=== PATIENT | female | born 1985 | race Caucasian/White ===

== ENCOUNTER 2016-09-17 11:56 | Emergency (ER) | payer OTHER ==
[~2016-09-17 11:56] MED LIST: ACET50TA PO; COLA100C PO; IBUP60TA PO; PERCOCET PO; VITAPRTA PO
--- NOTE | 2016-09-17 12:47 | EDDOCDS ---
Nurse's Notes [facility] Name: Jewels Reveles Age: 31 yrs Sex: Female : 1985 Arrival Date: 09/17/2016 Time: 11:56 Bed Triage 1 Private MD: JUDI Aguilar Diagnosis: Pain in right knee Presentation: 09/17 12:17 Presenting complaint: Patient states: pain around right knee feels like it's really [facility] deep, couldn't even walk this morning my had to stay home from work, this is the third time it's happened in a span of 6-months. Adult Sepsis Screening: The patient does not have new or worsening altered mentation. Patient's respiratory rate is less than 22. Systolic blood pressure is greater than 100. Patient has a qSOFA score of 0- Negative Sepsis Screen. Suicide/Homicide risk assessment- the patient denies having any suicidal and/or homicidal ideations and does not present with any other emotional, behavioral or mental health complaints. Status: The patient is a dependent. Transition of care: patient was not received from another setting of care. 12:17 Acuity: PADMAJA Level 4 [facility] 12:17 Method Of Arrival: Walkin/Carried/Asstd [facility] Triage Assessment: 12:18 General: Appears in no apparent distress, comfortable, Behavior is appropriate for age, [facility] cooperative. Pain: Location: right knee Pain currently is 8 out of 10 on a pain scale. HIV screening NA for this visit Offered previously. Neurological: Level of Consciousness is awake, alert, Oriented to person, place, time. Respiratory: Airway is patent Respiratory effort is even, unlabored, Respiratory pattern is regular, symmetrical. Musculoskeletal: Range of motion intact in all extremities. 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 clonazepam 0.5 mg Oral tab 1 tab 2 times per day prn 2. Lexapro 20 mg Oral tab once daily - PMHx: Anxiety; Irritable bowel syndrome; Pseudo Tumor Cerebri; - PSHx: Lithotripsy; D & C; mandible surgery; Laparoscopy; - Social history: Smoking status: Patient states former smoker of tobacco. No barriers to communication noted. - Family history: Not pertinent. - : The pt / caregiver states he / she is not on anticoagulants. Home medication list is obtained from the patient, [employer] import data. - Exposure Risk Screening:: None identified. Screenin:43 Screening information is obtained from the patient. Fall risk: No risks identified. cj Assistance ADL's: requires no assistance with activities of daily living. Abuse/DV Screen: The patient / caregiver reports he/she is: not in a situation that causes fear, pain or injury. Nutritional screening: No deficits noted. Advance Directives: There is no active DNR order. home support is adequate. Assessment: 12:43 General: Appears in no apparent distress, comfortable, Behavior is appropriate for age, cj cooperative, reviewed discharge instructions with patient who states she thought she would get an MRI here and feels not enough was done for her. discussed medical emergent use of MRI, discussed follow up care recommendations, and discussed medications prescribed. Encouraged patient to follow up as recommended and encouraged patient to return to ED if condition worsens. Vital Signs: 11:59 BP 135 / 80; Pulse 96; Resp 18; Temp 98.1; Pulse Ox 99% ; Weight 77.11 kg; Height 5 ft. elp 2 in. (157.48 cm); Pain 9/10; 11:59 Body Mass Index 31.09 (77.11 kg, 157.48 cm) [facility] Vitals: 11:59 Log In Time: September 17, 2016 at 11:57. [facility] ED Course: 11:58 Patient visited by Gabriela Sam PCA. elp 11:58 Jeff [facility] is Private Physician. elp 11:58 Patient moved to Waiting elp 11:59 Patient visited by Gabriela Sam PCA. elp 11:59 Patient moved to Pre RCE elp 12:18 Triage Initiated cj 12:20 [facility] btw 12:20 Kavya Dolan MD is Attending Physician. btw 12:20 Patient visited by Miller Holt PA. btw 12:20 Patient moved to Triage 1 cj 12:26 JUDI Aguilar is Referral Physician. btw 12:43 The patient / caregiver is instructed regarding the plan of care and ED course. [facility] 12:43 No IV's were initiated during this patient's visit. No procedures done that require [facility] assistance. Order Results: There are currently no results for this order. Outcome: 12:27 Discharge ordered by Provider. btw 12:43 Discharge Assessment: Patient awake, alert and oriented x 3. No cognitive and/or [facility] functional deficits noted. Patient verbalized understanding of disposition instructions. patient administered narcotics - no. The following High Risk Discharge criteria are identified: None. Discharged to home ambulatory. Condition: good Condition: stable Condition: improved. Discharge instructions given to patient, Instructed on discharge instructions, follow up and referral plans. medication usage, Demonstrated understanding of instructions, medications, Pt was receptive of discharge instructions/ teaching. Prescriptions given X 1. No special radiology studies were completed. Property :Personal belongings accompany Pt. 12:46 Patient left the ED. [facility] Signatures: Miller Holt PA PA btw Hafner, JaneRN RN [facility] Gabriela Sam, TINNING MACHINE SET UP OPERATOR TINNING MACHINE SET UP OPERATOR elp RJ
--- NOTE | 2016-09-17 12:47 | EDDOCDS ---
Physician Documentation [facility] Name: Jewels Reveles Age: 31 yrs Sex: Female : 1985 Arrival Date: 09/17/2016 Time: 11:56 Bed Triage 1 Private MD: JUDI Aguilar Disposition: 09/17/16 12:27 Discharged to Home/Self Care. Impression: Pain in right knee. - Condition is Stable. - Discharge Instructions: Arthralgia, Knee Pain. - Prescriptions for Medrol (Eder) 4 mg Oral Tablets, Dose Pack - take 1 Pack by ORAL route as directed - follow package instructions; 1 packet. - Medication Reconciliation, Local Pharmacy Hours form. - Follow up: JUDI Aguilar; When: Call to arrange an appointment; Reason: Further diagnostic work-up, Recheck today's complaints, Continuance of care. - Problem is new. - Symptoms are unchanged. Historical: - Allergies: Acetazolamide; - Home Meds: 1. clonazepam 0.5 mg Oral tab 1 tab 2 times per day prn 2. Lexapro 20 mg Oral tab once daily - PMHx: Anxiety; Irritable bowel syndrome; Pseudo Tumor Cerebri; - PSHx: Lithotripsy; D & C; mandible surgery; Laparoscopy; - Social history: Smoking status: Patient states former smoker of tobacco. No barriers to communication noted. - Family history: Not pertinent. - : The pt / caregiver states he / she is not on anticoagulants. Home medication list is obtained from the patient, [employer] import data. - Exposure Risk Screening:: None identified. 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 2 in. (157.48 cm); Pain 9/10; 11:59 Body Mass Index 31.09 (77.11 kg, 157.48 cm) elp MDM: 12:40 Financial registration complete. lg Signatures: Kaleb Singh, Reg Reg lg Miller Holt PA PA btw Hafner, Jane,RN RN [facility] MTDD
--- NOTE | 2016-09-19 13:47 | EDDOCDS ---
Physician Documentation [facility] Name: Jewels Reveles Age: 31 yrs Sex: Female : 1985 Arrival Date: 09/17/2016 Time: 11:56 Bed Triage 1 Private MD: JUDI Aguilar Disposition: 09/17/16 12:27 Discharged to Home/Self Care. Impression: Pain in right knee. - Condition is Stable. - Discharge Instructions: Arthralgia, Knee Pain. - Prescriptions for Medrol (Eder) 4 mg Oral Tablets, Dose Pack - take 1 Pack by ORAL route as directed - follow package instructions; 1 packet. - Medication Reconciliation, Local Pharmacy Hours form. - Follow up: JUDI Aguilar; When: Call to arrange an appointment; Reason: Further diagnostic work-up, Recheck today's complaints, Continuance of care. - Problem is new. - Symptoms are unchanged. Historical: - Allergies: Acetazolamide; - Home Meds: 1. clonazepam 0.5 mg Oral tab 1 tab 2 times per day prn 2. Lexapro 20 mg Oral tab once daily - PMHx: Anxiety; Irritable bowel syndrome; Pseudo Tumor Cerebri; - PSHx: Lithotripsy; D & C; mandible surgery; Laparoscopy; - Social history: Smoking status: Patient states former smoker of tobacco. No barriers to communication noted. - Family history: Not pertinent. - : The pt / caregiver states he / she is not on anticoagulants. Home medication list is obtained from the patient, [employer] import data. - Exposure Risk Screening:: None identified. NIGHT SHIFT: 09/17 12:18 LMP 09/03/2016 [facility] Vital Signs: 11:59 BP 135 / 80; Pulse 96; Resp 18; Temp 98.1; Pulse Ox 99% ; Weight 77.11 kg / 170 lbs; elp Height 5 ft. 2 in. (157.48 cm); Pain 9/10; 11:59 Body Mass Index 31.09 (77.11 kg, 157.48 cm) elp MDM: 12:40 Financial registration complete. lg 13:02 [facility] Payment Agreement was scanned into [employer] ([employer]) and attached to record. lg 14:35 T-Sheet-- Draft Copy was scanned into [employer]) and attached to record. gb Signatures: Iza Souza, Reg Reg gb Kaleb Singh, Reg Reg lg Miller Holt PA PA btw Amie Villalobos,RN RN [facility] The chart was reviewed and I authenticate all verbal orders and agree with the evaluation and treatment provided.Attachments: 13:02 [facility] Payment Agreement lg 14:35 T-Sheet-- Draft Copy gb Chart Complete MTDD
--- NOTE | 2016-09-19 13:47 | EDDOCDS ---
Physician Documentation [facility] Name: Jewels Reveles Age: 31 yrs Sex: Female : 1985 Arrival Date: 09/17/2016 Time: 11:56 Bed Triage 1 Private MD: JUDI Aguilar Disposition: 09/17/16 12:27 Discharged to Home/Self Care. Impression: Pain in right knee. - Condition is Stable. - Discharge Instructions: Arthralgia, Knee Pain. - Prescriptions for Medrol (Eder) 4 mg Oral Tablets, Dose Pack - take 1 Pack by ORAL route as directed - follow package instructions; 1 packet. - Medication Reconciliation, Local Pharmacy Hours form. - Follow up: JUDI Aguilar; When: Call to arrange an appointment; Reason: Further diagnostic work-up, Recheck today's complaints, Continuance of care. - Problem is new. - Symptoms are unchanged. Historical: - Allergies: Acetazolamide; - Home Meds: 1. clonazepam 0.5 mg Oral tab 1 tab 2 times per day prn 2. Lexapro 20 mg Oral tab once daily - PMHx: Anxiety; Irritable bowel syndrome; Pseudo Tumor Cerebri; - PSHx: Lithotripsy; D & C; mandible surgery; Laparoscopy; - Social history: Smoking status: Patient states former smoker of tobacco. No barriers to communication noted. - Family history: Not pertinent. - : The pt / caregiver states he / she is not on anticoagulants. Home medication list is obtained from the patient, [employer] import data. - Exposure Risk Screening:: None identified. 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 2 in. (157.48 cm); Pain 9/10; 11:59 Body Mass Index 31.09 (77.11 kg, 157.48 cm) elp MDM: 12:40 Financial registration complete. lg 13:02 [facility] Payment Agreement was scanned into [employer] and attached to record. lg 14:35 T-Sheet-- Draft Copy was scanned into [employer] and attached to record. gb Signatures: Iza Souza, Reg Reg gb Kaleb Singh, Reg Reg lg Miller Holt PA PA btw Amie Villalobos,RN RN [facility] The chart was reviewed and I authenticate all verbal orders and agree with the evaluation and treatment provided.Attachments: 13:02 [facility] Payment Agreement lg 14:35 T-Sheet-- Draft Copy gb Chart Complete MTDD
--- NOTE | 2016-09-19 13:47 | EDDOCDS ---
Nurse's Notes [facility] Name: Jewels Reveles Age: 31 yrs Sex: Female : 1985 Arrival Date: 09/17/2016 Time: 11:56 Bed Triage 1 Private MD: JUDI Aguilar Diagnosis: Pain in right knee Presentation: 09/17 12:17 Presenting complaint: Patient states: pain around right knee feels like it's really [facility] deep, couldn't even walk this morning my had to stay home from work, this is the third time it's happened in a span of 6-months. Adult Sepsis Screening: The patient does not have new or worsening altered mentation. Patient's respiratory rate is less than 22. Systolic blood pressure is greater than 100. Patient has a qSOFA score of 0- Negative Sepsis Screen. Suicide/Homicide risk assessment- the patient denies having any suicidal and/or homicidal ideations and does not present with any other emotional, behavioral or mental health complaints. Status: The patient is a dependent. Transition of care: patient was not received from another setting of care. 12:17 Acuity: PADMAJA Level 4 [facility] 12:17 Method Of Arrival: Walkin/Carried/Asstd [facility] Triage Assessment: 12:18 General: Appears in no apparent distress, comfortable, Behavior is appropriate for age, [facility] cooperative. Pain: Location: right knee Pain currently is 8 out of 10 on a pain scale. HIV screening NA for this visit Offered previously. Neurological: Level of Consciousness is awake, alert, Oriented to person, place, time. Respiratory: Airway is patent Respiratory effort is even, unlabored, Respiratory pattern is regular, symmetrical. Musculoskeletal: Range of motion intact in all extremities. 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 clonazepam 0.5 mg Oral tab 1 tab 2 times per day prn 2. Lexapro 20 mg Oral tab once daily - PMHx: Anxiety; Irritable bowel syndrome; Pseudo Tumor Cerebri; - PSHx: Lithotripsy; D & C; mandible surgery; Laparoscopy; - Social history: Smoking status: Patient states former smoker of tobacco. No barriers to communication noted. - Family history: Not pertinent. - : The pt / caregiver states he / she is not on anticoagulants. Home medication list is obtained from the patient, [employer] import data. - Exposure Risk Screening:: None identified. Screenin:43 Screening information is obtained from the patient. Fall risk: No risks identified. cj Assistance ADL's: requires no assistance with activities of daily living. Abuse/DV Screen: The patient / caregiver reports he/she is: not in a situation that causes fear, pain or injury. Nutritional screening: No deficits noted. Advance Directives: There is no active DNR order. home support is adequate. Assessment: 12:43 General: Appears in no apparent distress, comfortable, Behavior is appropriate for age, cj cooperative, reviewed discharge instructions with patient who states she thought she would get an MRI here and feels not enough was done for her. discussed medical emergent use of MRI, discussed follow up care recommendations, and discussed medications prescribed. Encouraged patient to follow up as recommended and encouraged patient to return to ED if condition worsens. Vital Signs: 11:59 BP 135 / 80; Pulse 96; Resp 18; Temp 98.1; Pulse Ox 99% ; Weight 77.11 kg; Height 5 ft. elp 2 in. (157.48 cm); Pain 9/10; 11:59 Body Mass Index 31.09 (77.11 kg, 157.48 cm) [facility] Vitals: 11:59 Log In Time: September 17, 2016 at 11:57. [facility] ED Course: 11:58 Patient visited by Gabriela Sam PCA. elp 11:58 Jeff [facility] is Private Physician. elp 11:58 Patient moved to Waiting elp 11:59 Patient visited by Gabriela Sam PCA. elp 11:59 Patient moved to Pre RCE elp 12:18 Triage Initiated cj 12:20 [facility]. btw 12:20 Kavya Dolan MD is Attending Physician. btw 12:20 Patient visited by Miller Holt PA. btw 12:20 Patient moved to Triage 1 cj 12:26 JUDI Aguilar is Referral Physician. btw 12:43 The patient / caregiver is instructed regarding the plan of care and ED course. [facility] 12:43 No IV's were initiated during this patient's visit. No procedures done that require [facility] assistance. 13:01 Patient name changed from Jewels\S\Sari\S\Gudenrath\S\ to Jewels\S\N\S\Gudenrath. EDMS 13:02 [facility] Payment Agreement was scanned into [email or web address] and attached to record. lg 14:35 T-Sheet-- Draft Copy was scanned into [email or web address] and attached to record. gb Order Results: There are currently no results for this order. Outcome: 12:27 Discharge ordered by Provider. bt 12:43 Discharge Assessment: Patient awake, alert and oriented x 3. No cognitive and/or [facility] functional deficits noted. Patient verbalized understanding of disposition instructions. patient administered narcotics - no. The following High Risk Discharge criteria are identified: None. Discharged to home ambulatory. Condition: good Condition: stable Condition: improved. Discharge instructions given to patient, Instructed on discharge instructions, follow up and referral plans. medication usage, Demonstrated understanding of instructions, medications, Pt was receptive of discharge instructions/ teaching. Prescriptions given X 1. No special radiology studies were completed. Property :Personal belongings accompany Pt. 12:46 Patient left the ED. [facility] Signatures: Dispatcher [employer] EDMS Iza Souza, Reg Reg gb Kaleb Singh, Reg Reg lg Miller oHlt PA PA btw Hafner, Jane, RN RN [facility] Gabriela Sam, EZEQUIEL TRANSPORTATION MANAGER elp Chart Complete [facility]
== END 2016-09-17 12:46 | disposition home or self-care (01) ==
LOC: M ED 11:56
DX: M25.561 Pain in right knee (principal); F41.9 Anxiety disorder, unspecified; K58.9 Irritable bowel syndrome, unspecified; G93.2 Benign intracranial hypertension; Z79.899 Other long term (current) drug therapy; Z88.8 Allergy status to other drugs, medicaments and biological substances

== ENCOUNTER 2016-12-07 12:17 | Emergency (ER) | payer OTHER ==
[~2016-12-07] VITALS: Ht 157.5 cm; Wt 93.0 kg
[~2016-12-07 12:17] MED LIST changes: -COLA100C PO; +COLA100C3 PO
[2016-12-07] MEDS ORDERED: ZOFR4TAB3 PO (12:37)
[2016-12-07] MEDS ORDERED: PERCOCET 5MG/325MG TAB PO ONE (13:30)
[2016-12-07 13:49] LABS: BASO % 0.3 % (0.0-1.0); EOS # 0.3 K/mm3 (0.0-0.50); LARGE UNSTAINED CELL # 0.1 K/mm3 (0.0-0.4); LARGE UNSTAINED CELL % 1.2 % (0.0-4.0); LYMPH # 2.1 K/mm3 (1.5-4.5); LYMPH % 20.2 % (24.0-44.0); MEAN CORPUSCULAR HEMOGLOBIN 29.3 pg (27.0-33.0); MEAN CORPUSCULAR HGB CONC 34.1 g/dl (32.0-36.5); MEAN CORPUSCULAR VOLUME 85.9 fl (80.0-96.0); MONO # 0.4 K/mm3 (0.0-0.8); MONO % 3.6 % (0.0-5.0); NEUTROPHILS # 7.3 K/mm3 (1.8-7.7); NEUTROPHILS % 71.7 % (36.0-66.0); PLATELET COUNT, AUTOMATED 190 k/mm3 (150-450); RED CELL DISTRIBUTION WIDTH 14.2 % (11.5-14.5); WHITE BLOOD COUNT 10.2 K/mm3 (4.0-10.0)
[2016-12-07 14:07] LABS: ANION GAP 8 MEQ/L (8-16); BLOOD UREA NITROGEN 7 MG/DL (7-18); CALCIUM LEVEL 9.5 MG/DL (8.5-10.1); CARBON DIOXIDE LEVEL 26 MEQ/L (21-32); CHLORIDE LEVEL 103 MEQ/L (98-107); CREATININE FOR GFR 0.53 MG/DL (0.55-1.02); GLOMERULAR FILTRATION RATE > 60.0 (>60); GLUCOSE, FASTING 97 MG/DL (70-105); POTASSIUM SERUM 3.8 MEQ/L (3.5-5.1); SODIUM LEVEL 137 MEQ/L (136-145)
[2016-12-07 14:27] VITALS: BP 137/68
[2016-12-07] MEDS ORDERED: KEFL500C7 PO (14:33)
--- NOTE | 2016-12-07 14:41 | REP ---
Urinary tract sonography: History: Left flank pain. Findings: Scanning through the level of the urinary bladder shows that it is largely empty. Incidental note is made of a viable intrauterine gestation. heart rate is recorded at 144 beats per minute. Renal cortical echogenicity is normal and contours are smooth bilaterally. There is no evidence of hydronephrosis on either side. No mass, cyst, or calculus is seen. The right kidney measures 11.6 x 5.5 x 5.0 cm. Left renal dimensions are 12.8 x 5.3 x 5.9 cm. Impression: Negative urinary tract sonography. No hydronephrosis seen. No calculus or mass noted. Signed by Remy Dejesus MD 12/07/2016 06:27 P
[2016-12-07] MEDS ORDERED: CEPHALEXIN 500 MG CAP PO ONE (14:45)
[2016-12-08] MEDS ORDERED: CYCL5TA PO (13:51)
== END 2016-12-07 14:44 | disposition home or self-care (01) ==
LOC: M ED 13:38
DX: N10 Acute pyelonephritis (principal); S29.012A Strain of muscle and tendon of back wall of thorax, initial encounter; X58.XXXA Exposure to other specified factors, initial encounter; Y92.89 Other specified places as the place of occurrence of the external cause; Y93.89 Activity, other specified; Y99.9 Unspecified external cause status

== ENCOUNTER → 2016-12-08 | Emergency (ER) | payer OTHER ==
[~2016-12-08] VITALS: Ht 157.5 cm; Wt 93.0 kg
[~2016-12-08] MED LIST changes: +CYCL5TA PO; +ISOVUE-370 76% 100ML VIAL (Q9967) As Ordered ONE; +KEFL500C7 PO; +ZOFR4TAB3 PO
[2016-12-08 12:36] LABS: BASO % 0.3 % (0.0-1.0); EOS # 0.2 K/mm3 (0.0-0.50); EOS % 2.2 % (0.0-3.0); LARGE UNSTAINED CELL # 0.1 K/mm3 (0.0-0.4); LARGE UNSTAINED CELL % 1.2 % (0.0-4.0); LYMPH # 2.1 K/mm3 (1.5-4.5); LYMPH % 20.8 % (24.0-44.0); MEAN CORPUSCULAR HEMOGLOBIN 28.9 pg (27.0-33.0); MEAN CORPUSCULAR HGB CONC 33.4 g/dl (32.0-36.5); MEAN CORPUSCULAR VOLUME 86.5 fl (80.0-96.0); MONO # 0.3 K/mm3 (0.0-0.8); MONO % 3.6 % (0.0-5.0); NEUTROPHILS # 6.9 K/mm3 (1.8-7.7); NEUTROPHILS % 71.8 % (36.0-66.0); PLATELET COUNT, AUTOMATED 198 k/mm3 (150-450); RED CELL DISTRIBUTION WIDTH 14.2 % (11.5-14.5); WHITE BLOOD COUNT 9.6 K/mm3 (4.0-10.0)
[2016-12-08 13:14] LABS: ANION GAP 8 MEQ/L (8-16); BLOOD UREA NITROGEN 9 MG/DL (7-18); CALCIUM LEVEL 9.3 MG/DL (8.5-10.1); CARBON DIOXIDE LEVEL 27 MEQ/L (21-32); CHLORIDE LEVEL 103 MEQ/L (98-107); CREATININE FOR GFR 0.64 MG/DL (0.55-1.02); GLOMERULAR FILTRATION RATE > 60.0 (>60); GLUCOSE, FASTING 83 MG/DL (70-105); SODIUM LEVEL 138 MEQ/L (136-145)
[2016-12-08 14:10] VITALS: BP 139/66
--- NOTE | 2016-12-08 14:27 | REP ---
CT PULMONARY ANGIOGRAM: With IV contrast. HISTORY: Left posterior chest pain. Question pulmonary embolus. No comparison study. Contrast dose: 75 mL of Isovue [address] TECHNIQUE: Helical scanning is acquired and overlapping 1.5 mm and contiguous 3 mm axial images are reformatted. In addition, a 3D work station is deployed to generate thick slab maximum intensity projection images in sagittal and coronal imaging projections. CT PULMONARY ANGIOGRAPHIC FINDINGS: There is good opacification of the pulmonary arterial tree. There is no CT evidence of pulmonary embolism. The thoracic aorta enhances homogeneously and is normal in course and caliber. No dissection or aortic aneurysm is seen. There is no evidence of pleural or pericardial effusion. There is a small sliding-type hiatal hernia. No infiltrate or atelectasis is seen in the lung allen. No bony destructive lesion is appreciated. No rib or other fracture is appreciated. Maximal intensity projection images show no additional abnormality. IMPRESSION: No CT evidence of pulmonary embolism. Negative CT pulmonary angiogram. Signed by Remy Dejesus MD 12/08/2016 03:40 P
== END | disposition home or self-care (01) ==
LOC: M ED 12:00
DX: O9A.211 Injury, poisoning and certain other consequences of external causes complicating pregnancy, first trimester (principal); S29.012A Strain of muscle and tendon of back wall of thorax, initial encounter; Z3A.12 12 weeks gestation of pregnancy; X58.XXXA Exposure to other specified factors, initial encounter; Y92.89 Other specified places as the place of occurrence of the external cause; Y93.89 Activity, other specified; Y99.9 Unspecified external cause status
CPT/HCPCS: 36415; 71275; 76775; 76857; 80048; 85025; 86901; 99282; Q9967

== ENCOUNTER → 2016-12-08 | Outpatient (CLI) | payer OTHER ==
[~2016-12-08] MED LIST changes: -ISOVUE-370 76% 100ML VIAL (Q9967) As Ordered ONE
--- NOTE | 2016-12-08 10:36 | REP ---
URINARY TRACT SONOGRAPHY: HISTORY: Possible stone, 73-owfj-3-day gestation. Left flank pain. History of kidney stones. Comparison sonography is the previous day, December 07, 2016. FINDINGS: Scanning at the level of the urinary bladder confirms the presence of emptying ureteral jets on color Doppler interrogation of the bladder lumen bilaterally. Bladder bazan are smooth as visualized. heart rate is recorded at 150 beats per minute. Renal cortical echogenicity pattern is normal and contours are smooth on both sides. There is no evidence of hydronephrosis on the left or the right. No calculus mass or cyst is seen in either kidney. The right kidney measures 11.3 x 6.1 x 5.1 cm. Left renal dimensions are 11.5 x 6.1 x 5.8 cm. IMPRESSION: No evidence of hydronephrosis, intrarenal calculus, mass or cyst on either side. Emptying ureteral jets are observed bilaterally in the urinary bladder on color Doppler. Signed by Remy Dejesus MD 12/08/2016 03:37 P
== END ==
LOC: M RAD 09:49
PROVIDERS: ATTEND Obstetrics & Gynecology
DX: R10.9 Unspecified abdominal pain (principal)

== ENCOUNTER 2017-04-21 13:46 | Outpatient (CLI) | payer OTHER ==
[~2017-04-21] VITALS: Ht 157.5 cm; Wt 100.0 kg
[~2017-04-21 13:46] MED LIST changes: -COLA100C3 PO; +COLA100C5 PO; -CYCL5TA PO; +CYCL5TAB PO; +KEFL500C17 PO; -KEFL500C7 PO
[2017-04-21] MEDS ORDERED: ANTA500C PO (13:55)
--- NOTE | 2017-04-21 21:08 | HPE ---
DATE OF ADMISSION: 04/21/2017 This lady is a 31-year-old 6, para 4, abortio 1, last menstrual period (LMP) 09/03/2016, estimated date of confinement (EDC) 06/20/2017 at 31 and 1 weeks of gestation with a feeling of pelvic pressure and something popping in her vagina. Her risk factors are she was noncompliant, she had pseudotumor cerebri, she is a GDMA1. She failed a 1-hour glucose. Did not do her 3-hour GTT. She has had gestational diabetes with three out of her four pregnancies. She suffers from depression and is on Zoloft. PAST HISTORY: In 2011 at 37 weeks, 6-pound 11-ounce male, spontaneous vaginal delivery. In 2012 at 38 weeks, 6-pound female, spontaneous vaginal delivery. In 2013 at 38 and 6 weeks, female, spontaneous vaginal delivery. In 2015 at 39 weeks, 8-pound female, spontaneous vaginal delivery. Apparently with one of her pregnancies she had labor at 28 weeks. and she was given steroids, but she delivered at 37 weeks. Her labs show O positive, HIV negative, hepatitis negative, RPR negative, rubella immune, Varicella immune. Pap shows HPV. Gonorrhea and chlamydia ate negative. One-hour glucose is 156. We do not have a 3-hour GTT. Presently today her urine is 1015, pH 6, negative, negative. Blood pressure is 148/81, respirations are 18, pulse 103, and temperature is 98.4. The rest of the examination is unremarkable. She does not seem to be in any distress. Symphysis fundus height is 32. Four-quadrant bowel sounds are noted. Soft uterus. Category 1 strip with no contractions. Pelvic examination: Mo loss of fluid or vaginal discharge. Cervix is closed, posterior high, not dilated and not effaced. She is seeing Dr. Aguilar tomorrow morning for re-evaluation, as that is her regular visit. The rest the examination, as mentioned, is unremarkable. She is normocephalic, atraumatic. Neck: Full range of motion. Pupils equal and reactive to light. Chest: Distal pulses are symmetric. No evident deep vein thrombosis (DVT), pulmonary embolism (PE), or superficial phlebitis. Lungs are clear bilaterally to bases. No wheezes or rhonchi. No costovertebral angle (CVA) tenderness. Uterus is soft, . Four-quadrant bowel sounds. Appropriate symphysis fundus height. She has no rashes, lesions, or pruritus. No arthralgia, myalgia. No complaints of cough, wheezes, shortness of breath, or dyspnea on exertion. No allergies. No chest pain. She is not bleeding. Neurologic complete. No incontinency, urgency, or frequency. No nausea, vomiting, diarrhea, or constipation. We are uncertain about her diabetic issues, as she do her 3-hour GTT. GYNECOLOGIC HISTORY: Unremarkable. PAST MEDICAL/SURGICAL HISTORY: Unremarkable. FAMILY HISTORY: Noncontributory. She does not smoke, drink, abuse drugs. She is a qfvy-du-qbtv mom, and she is with no domestic violence. In summary, we have a 31 and 1 week of gestation with pelvic pressure secondary to compression at the symphysis pubis. No evidence of active labor. No evidence of loss of fluid or vaginal discharge. The patient was discharged undelivered with precautions to see Dr. Lauren vallecillo that tomorrow morning for re-evaluation. She was told to come back if symptomatology changed.
== END 2017-04-21 16:20 | disposition home or self-care (01) ==
LOC: M LDO 13:46
PROVIDERS: ATTEND Obstetrics & Gynecology
DX: O26.893 Other specified pregnancy related conditions, third trimester (principal); R10.2 Pelvic and perineal pain; O24.419 Gestational diabetes mellitus in pregnancy, unspecified control; Z3A.31 31 weeks gestation of pregnancy; O99.343 Other mental disorders complicating pregnancy, third trimester; F33.9 Major depressive disorder, recurrent, unspecified; O28.2 Abnormal cytological finding on antenatal screening of mother; Z79.899 Other long term (current) drug therapy

== ENCOUNTER 2017-06-12 11:18 | Inpatient (IN) | payer OTHER ==
[~2017-06-12] VITALS: Ht 157.5 cm; Wt 105.8 kg
[2017-06-12] VITALS (43 sets, daily range): BP systolic 97–145; BP diastolic 50–78
[~2017-06-12 11:18] MED LIST changes: +ANTA500C PO
[2017-06-12] MEDS ORDERED: PRIL20CA9 PO (12:18)
[2017-06-12] MEDS ORDERED: ACET50TA PO (12:20)
[2017-06-12 13:02] LABS: MEAN CORPUSCULAR HEMOGLOBIN 24.6 pg (27.0-33.0); MEAN CORPUSCULAR HGB CONC 32.1 g/dl (32.0-36.5); MEAN CORPUSCULAR VOLUME 76.4 fl (80.0-96.0); PLATELET COUNT, AUTOMATED 184 10^3/uL (150-450); RED CELL DISTRIBUTION WIDTH 16.1 % (11.5-14.5); WHITE BLOOD COUNT 11.8 10^3/uL (4.0-10.0)
[2017-06-12] MEDS ORDERED: LR 1,000 ML IV SCH (13:35)
[2017-06-12] MEDS ORDERED: LACTATED RINGER'S 1000 ML IV ONE (13:45)
[2017-06-12] MEDS ORDERED: miSOPROStol 50 MCG 1/2 TAB (S0191) PO ONE (13:45)
--- NOTE | 2017-06-12 15:56 | HPE ---
DATE OF ADMISSION: 06/12/2017 This lady is a 31-year-old 6, para 4, abortio 1, last menstrual period (LMP) 09/03/2016, estimated date of confinement (EDC) 06/20/2017 at 38 weeks of gestation for induction of labor. Risk factors are she is noncompliant, body mass index (BMI) of 42, elevated blood sugars. One-hour is 156. Did not do her 3-hour GTT and fails to bring her blood sugars as per her monitoring. She has uncontrolled gestational diabetes mellitus (GDM) A1. She suffers from depression and anxiety. Was on Zoloft. Proteinuria at her last visit, 24-hour, with a protein/creatinine ratio 0.33. She has midrange blood pressures. Human papillomavirus (HPV) positive. Has had a history of kidney stones and has anemia with hemoglobin of 9.9. Labs are O positive, HIV negative, hepatitis negative, RPR negative, rubella immune, Varicella immune. Pap normal. Gonorrhea and chlamydia are negative. HPV was positive. One-hour glucose 156. GBS is negative. PAST HISTORY: In 2011, 37-week 6-pound 11-ounce male. Spontaneous vaginal delivery. In 2012, 38 weeks, 6-pound female. Spontaneous vaginal delivery. In 2013 at 38 weeks, 6-pound female. Spontaneous vaginal delivery. In 2015 at 39 weeks, 8-pound 1-ounce female. Spontaneous vaginal delivery. Spontaneous with dilatation and curettage. PHYSICAL EXAMINATION: No acute distress. She has some anxiety, which raises her blood pressure. Her blood pressure is 121/63, respirations are 20, pulse 102, temperature 98.9. Urine 1020, pH 6, +1 protein, 30 mg, trace leukocytes. The rest is negative. Cervix is soft, 3 cm, mid position, -3, occiput transverse (OT), 80% effaced with bulging membranes. The rest of the examination is unremarkable. She is normocephalic, atraumatic. Neck: Full range of motions. Pupils equal and reactive to light. Distal pulses symmetric. No evidence of deep vein thrombosis (DVT), pulmonary embolism (PE), or superficial phlebitis. Reflexes are normal. Chest is clear bilaterally to bases. No wheezes or rhonchi. No costovertebral angle (CVA) tenderness. Uterus is nontender. Symphysis fundus height is appropriate. Category 1 strip with the occasional early deceleration. No rashes, lesions, or pruritus. No arthralgia or myalgia. No complaints of cough, wheezes, shortness of breath or dyspnea on exertion. Her sore throat is resolving. She has no chest pain. Not bleeding. Neurologic complete. No incontinency, urgency, or frequency. No nausea, vomiting, diarrhea, or constipation. Diabetic issues is she is noncompliant. Had a 1-hour glucose 156. She has HPV positive with her [employer] issues. Pap smear is normal. PAST MEDICAL HISTORY: Unremarkable. PAST SURGICAL HISTORY: Dilatation and curettage. She suffers from kidney stones. FAMILY HISTORY: Noncontributory. SOCIAL HISTORY: Does not smoke, drink, abuse drugs. 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 Risks and benefits of induction of labor were discussed, including hemorrhage, infection, atonic uterus, shoulder dystocia, failure to progress, distress, and increased risk of section. The patient and expressed understanding of all the issues, and we will go ahead and start Cytotec induction of labor. Appropriateness of epidural timing, and we anticipate vaginal delivery as per her last four.
[2017-06-12] MEDS ORDERED: FENTANYL 2MCG/ML ROPIVACAINE 0.2% IN 0.9% NACL 200ML IVBAG As Ordered ONE (19:08)
[2017-06-12] MEDS ORDERED: OXYTOCIN 30 UNITS IN 0.9% NaCl 500ML IV BAG (J2590) As Ordered ONE (19:08)
[2017-06-12] MEDS ORDERED: EPIDURAL COMMENT XX SCH (20:07)
[2017-06-12] MEDS ORDERED: FENTANYL/ROPIVACAINE/NACL BAG 200 ML EPIDURAL SCH (20:07)
[2017-06-12] MEDS ORDERED: ONDANSETRON 4MG/2ML VIAL (J2405) IV PRN (20:07)
[2017-06-12] MEDS ORDERED: REFRIGERATOR IV KEYS XX PRN (20:07)
[2017-06-12] MEDS ORDERED: ePHEDrine SULFATE 25 MG/5 ML(5MG/ML) SYRINGE IV PRN (20:07)
[2017-06-12] MEDS ORDERED: diphenhydrAMINE INJ 50MG/ML VIAL (J1200) IV PRN (20:07)
[2017-06-12] MEDS ORDERED: NALOXONE INJ 0.4 MG/1 ML VIAL (J2310) IV PRN (20:07)
[2017-06-12] MEDS ORDERED: EPIDURAL/PCA KEYS XX PRN (20:07)
[2017-06-12] MEDS ORDERED: OXYTOCIN DRIP 30 UNITS in APPROPRIATE DILUENT 1 EA IV SCH (22:45)
[2017-06-13] VITALS (18 sets, daily range): BP systolic 102–138; BP diastolic 53–72
[2017-06-13 02:11] LABS: CORD GAS ABE A -3.4; CORD GAS HCO3 A 22.6 MEQ/L; CORD GAS O2 SAT A 58.4 %; CORD GAS PCO2 A 43.6 mmHg; CORD GAS PH A 7.332 UNITS; CORD GAS PO2 A 23.8 mmHg; CORD GAS SBC A 20.6 MEQ/L; CORD GAS TCO2 A 23.9 MEQ/L
[2017-06-13 02:14] LABS: CORD GAS ABE V -3.6; CORD GAS HCO3 V 20.3 MEQ/L; CORD GAS O2 SAT V 81.3 %; CORD GAS PCO2 V 34.1 mmHg; CORD GAS PH V 7.392 UNITS; CORD GAS PO2 V 33.3 mmHg; CORD GAS SBC V 21.1 MEQ/L; CORD GAS TCO2 V 21.3 MEQ/L
[2017-06-13] MEDS ORDERED: DOCUSATE SODIUM 100 MG CAP PO PRN (02:15)
[2017-06-13] MEDS ORDERED: MOM 30ML SUSPENSION UDC PO PRN (02:15)
[2017-06-13] MEDS ORDERED: DIBUCAINE 1% OINTMENT 30GM TOP PRN (02:15)
[2017-06-13] MEDS ORDERED: ANUSOL HC CREAM 30GM TOP PRN (02:15)
[2017-06-13] MEDS ORDERED: RHOGAM 300 MCG (1500 IU) INJ (J2790) IM SCH (02:15)
[2017-06-13] MEDS ORDERED: MEASLES,MUMPS,RUBELLA VACCINE INJ (MMR-II) (90707) SC SCH (02:15)
[2017-06-13] MEDS ORDERED: METHYLERGONOVINE MALEATE 0.2 MG TAB PO PRN (02:15)
[2017-06-13] MEDS: IBUPROFEN 800 MG TAB PO PRN ×3 (03:55→20:59)
[2017-06-13] MEDS ORDERED: OXYTOCIN INJ 10 UNITS/ML VIAL (J2590) As Ordered ONE (06:11)
[2017-06-13] MEDS ORDERED: OXYTOCIN INJ 10 UNITS/ML VIAL (J2590) IV ONE (07:00)
[2017-06-13] MEDS: PRENATAL VITAMINS CHEWABLE TABLET PO SCH (08:29)
[2017-06-13] MEDS: ACETAMINOPHEN 500 MG TAB PO PRN ×2 (08:30→20:59)
[2017-06-13] MEDS: SERTRALINE HCL 50 MG TAB PO SCH (08:30)
--- NOTE | 2017-06-13 09:17 | DN ---
DATE OF SERVICE: 06/13/2017 31-year-old 6, now para 5 was admitted for induction of labor being noncompliant, GDMa1, LGA, proteinuria, anemia, HPV positive and depression. She had an induction of labor with one dose of Cytotec followed by an artificial rupture of membranes (AROM) augmented with Pitocin with epidural in place, had a spontaneous vaginal delivery live female weighing 9 pounds 2 ounces, 4130 grams, scores of 9 and 9 at one and five minutes respectively. Arterial pH 7.33, base excess -3.4, venous pH 7.38, base excess -3.6. Placenta delivered spontaneously thereafter. Three-vessel cord, membranes and tissues intact. Uterus contracted well down on Pitocin. She had a small blood vessel at the introital area which would not stop bleeding. Therefore, a [id number] was placed with 2-0 Vicryl and [id number]. Examination of the vagina was intact. Anteroposterior lateral wall sphincter was intact and tight. The patient and baby tolerating procedure well.
[2017-06-13] MEDS ORDERED: ACETAMINOPH W/CODEINE #3 TAB UD PO ONE (16:00)
[2017-06-13] MEDS: PERCOCET 5MG/325MG TAB PO PRN (22:03)
[2017-06-14] MEDS: PERCOCET 5MG/325MG TAB PO PRN (02:08)
[2017-06-14] MEDS: IBUPROFEN 800 MG TAB PO PRN (05:09)
[2017-06-14 06:00] VITALS: BP 119/73
[2017-06-14 07:03] LABS: MEAN CORPUSCULAR HEMOGLOBIN 24.6 pg (27.0-33.0); MEAN CORPUSCULAR VOLUME 79.3 fl (80.0-96.0); PLATELET COUNT, AUTOMATED 154 10^3/uL (150-450); RED CELL DISTRIBUTION WIDTH 16.3 % (11.5-14.5); WHITE BLOOD COUNT 10.8 10^3/uL (4.0-10.0)
[2017-06-14] MEDS ORDERED: INFLUENZA QUADRIVALENT PF VACCINE 0.5ML SYRINGE (90686) IM ONE (09:00)
[2017-06-14] MEDS ORDERED: ADACEL/BOOSTRIX VACCINE (DIPHTH/PERTUSS/ACELL/TETANUS)0.5ML SYR (90715) IM ONE (09:00)
[2017-06-14] MEDS: PRENATAL VITAMINS CHEWABLE TABLET PO SCH (09:02)
[2017-06-14] MEDS: SERTRALINE HCL 50 MG TAB PO SCH (09:02)
--- NOTE | 2017-06-14 09:02 | DSES ---
DATE OF ADMISSION: 06/12/2017 DATE OF DISCHARGE: 06/14/2017 This lady is a 31-year-old 6 now para 5 admitted for induction of labor because of gestational diabetes mellitus type 1 (GDMA1) uncontrolled, noncompliant, proteinuria and large for gestational age (LGA). She had a spontaneous vaginal delivery live female infant 9 pounds 2 ounces, 4130 grams, of 9 and 9 at one and five minutes respectfully. Arterial pH 7.33, base excess -3.4, venous pH 7.39, base excess -3.6. Admitting hemoglobin was 9.9, hematocrit 30.8 and platelets were 184. Discharge hemoglobin 8.3, hematocrit 26.8 and platelets are 154. On discharge her blood pressure is 119/72, respirations 16, pulse 65, temperature 97.5. Despite her low hemoglobin, she is not symptomatic. She was, in her course of , noncompliant and GDAMA1, elevated blood pressure, depression, anxiety, proteinuria, HPV positive and anemia noted. On discharge we discussed phlebitis, cystitis, mastitis, endometritis, cellulitis, diet, exercise, pain management, perineal, breast and wound care. The patient is planning on tubal to be discussed at her 6-week checkup and booked at that time. In the interim at 6 weeks, we have dispensed for her control contraceptive pills not to be started before 6 weeks as discussed with the patient. The patient was discharged home improved MTDD
[2017-06-14] MEDS ORDERED: ZOLO50TA PO (09:24)
[2017-06-14] MEDS ORDERED: ACET50TA PO (09:25)
[2017-06-14] MEDS ORDERED: IBUP-1114 PO (09:25)
[2017-06-14] MEDS ORDERED: MOM30SS PO (09:25)
[2017-06-14] MEDS ORDERED: ANUS2.5C2 TOP (09:26)
[2017-06-14] MEDS ORDERED: COLA100C5 PO (09:26)
[2017-06-14] MEDS ORDERED: DIBU1OIN TOP (09:27)
== END 2017-06-14 11:05 | disposition home or self-care (01) | DRG 775 ==
LOC: M LDI 11:18 → M OBS 06-13 03:38
PROVIDERS: ADMIT Obstetrics & Gynecology; ATTEND Obstetrics & Gynecology
PROC: 3E0P7GC Introduction of Other Therapeutic Substance into Female Reproductive, Via Natural or Artificial Opening (ICD-10-PCS; 2017-06-12)
PROC: 10907ZC Drainage of Amniotic Fluid, Therapeutic from Products of Conception, Via Natural or Artificial Opening (ICD-10-PCS; 2017-06-12)
PROC: 10E0XZZ Delivery of Products of Conception, External Approach (ICD-10-PCS; principal; 2017-06-13)
DX: O24.429 Gestational diabetes mellitus in childbirth, unspecified control (principal); Z3A.38 38 weeks gestation of pregnancy; O99.344 Other mental disorders complicating childbirth; F32.9 Major depressive disorder, single episode, unspecified; F41.9 Anxiety disorder, unspecified; O99.02 Anemia complicating childbirth; D64.9 Anemia, unspecified; Z91.19 Patient's noncompliance with other medical treatment and regimen; O36.63X0 Maternal care for excessive fetal growth, third trimester, not applicable or unspecified; Z37.0 Single live birth

== ENCOUNTER 2018-02-17 09:25 | Emergency (ER) | payer OTHER ==
[2018-02-17] MEDS: METOCLOPRAMIDE INJ 10MG/2ML VIAL (J2765) IV (10:40)
[2018-02-17] MEDS: KETOROLAC 30 MG/ML VIAL (J1885) IV (10:40)
[2018-02-17] MEDS: diphenhydrAMINE INJ 50MG/ML VIAL (J1200) IV (10:40)
[2018-02-17] MEDS: NS 1,000 ML IV (10:40)
[2018-02-17 10:43] LABS: BASO # 0.1 10^3/uL (0.0-0.2); BASO % 0.5 % (0.0-1.0); EOS # 0.1 10^3/uL (0.0-0.50); EOS % 0.9 % (0.0-3.0); HEMATOCRIT 37.1 % (36.0-47.0); HEMOGLOBIN 12.7 g/dl (12.0-15.5); IMMATURE GRANULOCYTE % 0.8 % (0-3.0); LYMPH # 3.9 10^3/uL (1.5-4.5); LYMPH % 33.1 % (24.0-44.0); MEAN CORPUSCULAR HEMOGLOBIN 27.4 pg (27.0-33.0); MEAN CORPUSCULAR HGB CONC 34.2 g/dl (32.0-36.5); MONO # 0.6 10^3/uL (0.0-0.8); MONO % 5.5 % (0.0-5.0); NEUTROPHILS # 6.9 10^3/uL (1.8-7.7); NEUTROPHILS % 59.2 % (36.0-66.0); PLATELET COUNT, AUTOMATED 257 10^3/uL (150-450); RED BLOOD COUNT 4.64 10^6/uL (4.00-5.40); RED CELL DISTRIBUTION WIDTH 14.8 % (11.5-14.5); WHITE BLOOD COUNT 11.7 10^3/uL (4.0-10.0)
[2018-02-17 11:03] LABS: ERYTHROCYTE SEDIMENTATION RATE 15 mm/hr (0-20)
[2018-02-17 11:21] LABS: ANION GAP 7 MEQ/L (8-16); BLOOD UREA NITROGEN 19 MG/DL (7-18); C REACTIVE PROTEIN QUANTITATIV 0.45 MG/DL (0.00-0.30); CALCIUM LEVEL 8.4 MG/DL (8.5-10.1); CARBON DIOXIDE LEVEL 28 MEQ/L (21-32); CHLORIDE LEVEL 108 MEQ/L (98-107); CREATININE FOR GFR 0.84 MG/DL (0.55-1.30); GLOMERULAR FILTRATION RATE > 60.0 (>60); GLUCOSE, FASTING 122 MG/DL (70-100); POTASSIUM SERUM 3.5 MEQ/L (3.5-5.1); SODIUM LEVEL 143 MEQ/L (136-145)
[2018-02-17] MEDS: methylPREDNISolone INJ 125 MG/2 ML VIAL (J2930) IV (11:28)
[2018-02-19 00:07] LABS: Lyme Disease IgG/IgM Antibodie <0.91 ISR (0.00-0.90); Lyme Disease IgM Ab Quantitati <0.80 index (0.00-0.79)
== END 2018-02-17 11:55 | disposition home or self-care (01) ==
LOC: M ED 09:25
DX: G43.819 Other migraine, intractable, without status migrainosus (principal); R51 Headache; K58.9 Irritable bowel syndrome, unspecified; F41.9 Anxiety disorder, unspecified; Z87.891 Personal history of nicotine dependence; Z79.899 Other long term (current) drug therapy; Z88.8 Allergy status to other drugs, medicaments and biological substances
CPT/HCPCS: J1200

== ENCOUNTER 2018-02-18 09:50 | Emergency (ER) | payer OTHER ==
[2018-02-18 10:48] LABS: APPEARANCE, URINE HAZY (CLEAR); BACTERIA, URINE AUTO NEGATIVE (NEGATIVE); BILIRUBIN, URINE AUTO NEGATIVE (NEGATIVE); BLOOD, URINE BLOOD NEGATIVE (NEGATIVE); COLOR, URINE YELLOW (YELLOW); GLUCOSE, URINE (UA) AUTO NEGATIVE (NEGATIVE); KETONE, URINE AUTO NEGATIVE (NEGATIVE); LEUKOCYTE ESTERASE, URINE AUTO 2+ (NEGATIVE); NITRITE, URINE AUTO NEGATIVE (NEGATIVE); PROTEIN, URINE AUTO NEGATIVE (NEGATIVE); RBC, URINE AUTO 2 /HPF (0-3); SPECIFIC GRAVITY URINE AUTO 1.019 (1.002-1.035); SQUAMOUS EPITHELIAL CELL UR AU 5 /HPF (0-6); UROBILINOGEN, URINE AUTO 0.2 mg/dL (0.0-2.0); WBC, URINE AUTO 3 /HPF (0-3)
[2018-02-18] MEDS: KETOROLAC 30 MG/ML VIAL (J1885) IV (10:50)
[2018-02-18] MEDS: PANTOPRAZOLE 40MG INJ (PROTONIX) (C9113) IV (10:50)
[2018-02-18] MEDS: NS 1,000 ML IV (10:50)
[2018-02-18] MEDS: METOCLOPRAMIDE INJ 10MG/2ML VIAL (J2765) IV (10:50)
[2018-02-18] MEDS: GI COCKTAIL 50ML BTL(HYOSCYAMINE/MAALOX/LIDOCAINE VISCOUS)(1:3:1) PO (10:50)
[2018-02-18] MEDS: diphenhydrAMINE INJ 50MG/ML VIAL (J1200) IV (10:50)
[2018-02-18] MEDS: ALPRAZolam 0.5 MG TAB PO (11:58)
[2018-02-18 12:01] LABS: CK-MB VALUE MASS < 1.0 NG/ML (<3.6); CPK CREATINE PHOSPHOKINASE 103 U/L (26-192); MB/CK RELATIVE INDEX 0.97 (< OR =4); TROPONIN I < 0.02 NG/ML (< 0.10)
[2018-02-18 12:15] LABS: BASO # 0.1 10^3/uL (0.0-0.2); BASO % 0.4 % (0.0-1.0); EOS % 0.1 % (0.0-3.0); HEMATOCRIT 35.6 % (36.0-47.0); HEMOGLOBIN 11.9 g/dl (12.0-15.5); IMMATURE GRANULOCYTE % 0.8 % (0-3.0); LYMPH % 26.7 % (24.0-44.0); MEAN CORPUSCULAR HEMOGLOBIN 26.9 pg (27.0-33.0); MEAN CORPUSCULAR HGB CONC 33.4 g/dl (32.0-36.5); MEAN CORPUSCULAR VOLUME 80.4 fl (80.0-96.0); MONO # 1.3 10^3/uL (0.0-0.8); MONO % 8.5 % (0.0-5.0); NEUTROPHILS # 9.5 10^3/uL (1.8-7.7); NEUTROPHILS % 63.5 % (36.0-66.0); PLATELET COUNT, AUTOMATED 273 10^3/uL (150-450); RED BLOOD COUNT 4.43 10^6/uL (4.00-5.40)
[2018-02-18 12:38] LABS: ALBUMIN 3.7 GM/DL (3.2-5.2); ALKALINE PHOSPHATASE 85 U/L (45-117); ALT/SGPT 25 U/L (12-78); ANION GAP 9 MEQ/L (8-16); AST/SGOT 11 U/L (7-37); BILIRUBIN,TOTAL 0.1 MG/DL (0.2-1.0); BLOOD UREA NITROGEN 17 MG/DL (7-18); CALCIUM LEVEL 8.1 MG/DL (8.5-10.1); CARBON DIOXIDE LEVEL 22 MEQ/L (21-32); CHLORIDE LEVEL 111 MEQ/L (98-107); CREATININE FOR GFR 0.67 MG/DL (0.55-1.30); GLOMERULAR FILTRATION RATE > 60.0 (>60); GLUCOSE, FASTING 85 MG/DL (70-100); LIPASE 129 U/L (73-393); POTASSIUM SERUM 3.8 MEQ/L (3.5-5.1); SODIUM LEVEL 142 MEQ/L (136-145); TOTAL PROTEIN 7.4 GM/DL (6.4-8.2)
== END 2018-02-18 13:24 | disposition home or self-care (01) ==
LOC: M ED 09:50
DX: F41.1 Generalized anxiety disorder (principal); G43.909 Migraine, unspecified, not intractable, without status migrainosus; I10 Essential (primary) hypertension; K58.9 Irritable bowel syndrome, unspecified; Z88.8 Allergy status to other drugs, medicaments and biological substances; Z79.899 Other long term (current) drug therapy
CPT/HCPCS: C9113

== ENCOUNTER → 2018-06-04 | Outpatient (REF) | payer OTHER | LOC: M SFHCLERA 09:40 | DX: R50.9 Fever, unspecified (principal); R05 Cough ==

== ENCOUNTER 2018-06-12 10:19 | Emergency (ER) | payer OTHER ==
[2018-06-12 11:52] LABS: CONTROL LINE UCG INT CTR LINE PRESENT; URINE PREG TEST NEGATIVE (NEGATIVE)
[2018-06-12 12:01] LABS: KETONE, URINE AUTO RFX NEGATIVE (NEGATIVE); LEUKOCYTE ESTERASE UR AUTO RFX NEGATIVE (NEGATIVE); NITRITE, URINE AUTO RFX NEGATIVE (NEGATIVE); RBC, URINE AUTO RFX 1 /HPF (0-3); SPECIFIC GRAVITY UR AUTO RFX 1.004 (1.002-1.035); SQUAM EPITHELIAL CELL UR AURFX 0 /HPF (0-6); WBC, URINE AUTO RFX 0 /HPF (0-3)
[2018-06-12 13:40] LABS: CHLAMYDIA DNA AMPLIFICATION NEGATIVE (NEGATIVE); GC DNA AMPLIFICATION NEGATIVE (NEGATIVE)
== END 2018-06-12 14:47 | disposition home or self-care (01) ==
LOC: M ED 10:19
DX: N81.10 Cystocele, unspecified (principal); R32 Unspecified urinary incontinence; D25.9 Leiomyoma of uterus, unspecified; I10 Essential (primary) hypertension; F33.9 Major depressive disorder, recurrent, unspecified; F41.9 Anxiety disorder, unspecified; K21.9 Gastro-esophageal reflux disease without esophagitis; K58.9 Irritable bowel syndrome, unspecified; G43.909 Migraine, unspecified, not intractable, without status migrainosus; Z79.899 Other long term (current) drug therapy; Z88.8 Allergy status to other drugs, medicaments and biological substances; Z87.891 Personal history of nicotine dependence
CPT/HCPCS: 76856

== ENCOUNTER 2018-06-23 11:42 | Emergency (ER) | payer OTHER ==
[2018-06-23 13:55] LABS: INFLUENZA A AMPLIFICATION NEGATIVE (NEGATIVE); INFLUENZA B AMPLIFICATION NEGATIVE (NEGATIVE); RSV AMPLIFICATION NEGATIVE (NEGATIVE)
== END 2018-06-23 14:27 | disposition home or self-care (01) ==
LOC: M ED 11:42
DX: J06.9 Acute upper respiratory infection, unspecified (principal); N81.10 Cystocele, unspecified
CPT/HCPCS: 71046

== ENCOUNTER 2018-08-20 16:43 | Emergency (ER) | payer OTHER ==
[~2018-08-20] VITALS: Ht 157.5 cm; Wt 90.9 kg
[~2018-08-20 16:43] MED LIST changes: -ACET50TA PO; +AMIT10TA PO; +AMOX500C PO; +ANUS2.5C2 TOP; +CLON0.5T8 PO; +DIBU1OIN TOP; +FAMO20TA PO; +IBUP-1114 PO; +IBUP80TA PO; +LISINOPRIL-HCTZ PO; +MAPA500T2 PO; +MOM30SS PO; +NAPR-885 PO; +PRIL20CA9 PO; +REGL10TA6 PO; +RIZA10TA4 PO; +TESS100C PO; +TGT25CAP PO; +TUSS1SUS2 PO; +XANA0.5T PO; +ZOFR4TAB14 PO; -ZOFR4TAB3 PO; +ZOLO50TA PO
[2018-08-20] MEDS ORDERED: ALPR0.5T3 PO (16:56)
[2018-08-20] MEDS ORDERED: SERT-138 PO (16:56)
[2018-08-20] MEDS ORDERED: AMIT50TA PO (16:56)
[2018-08-20] MEDS ORDERED: FAMO20TA PO (17:05)
[2018-08-20] MEDS ORDERED: TIZA-208 PO (17:05)
[2018-08-20] MEDS ORDERED: ACETAMINOPHEN 325 MG TAB PO ONE (17:15)
[2018-08-20 17:33] LABS: BASO # 0.1 10^3/uL (0.0-0.2); BASO % 0.5 % (0.0-1.0); EOS # 0.4 10^3/uL (0.0-0.50); EOS % 2.9 % (0.0-3.0); HEMATOCRIT 42.7 % (36.0-47.0); LYMPH # 2.9 10^3/uL (1.5-4.5); LYMPH % 20.5 % (24.0-44.0); MEAN CORPUSCULAR HEMOGLOBIN 27.5 pg (27.0-33.0); MEAN CORPUSCULAR HGB CONC 32.8 g/dl (32.0-36.5); MEAN CORPUSCULAR VOLUME 83.9 fl (80.0-96.0); MONO # 0.7 10^3/uL (0.0-0.8); NEUTROPHILS # 9.9 10^3/uL (1.8-7.7); NEUTROPHILS % 70.7 % (36.0-66.0); PLATELET COUNT, AUTOMATED 288 10^3/uL (150-450); RED BLOOD COUNT 5.09 10^6/uL (4.00-5.40); WHITE BLOOD COUNT 13.9 10^3/uL (4.0-10.0)
[2018-08-20 17:50] LABS: HCG, SERUM QUALITATIVE NEGATIVE (NEGATIVE)
[2018-08-20 17:55] LABS: BLOOD UREA NITROGEN 9 MG/DL (7-18); C REACTIVE PROTEIN QUANTITATIV 0.77 MG/DL (0.00-0.30); CALCIUM LEVEL 9.5 MG/DL (8.5-10.1); CARBON DIOXIDE LEVEL 29 MEQ/L (21-32); CHLORIDE LEVEL 103 MEQ/L (98-107); CREATININE FOR GFR 0.79 MG/DL (0.55-1.30); GLOMERULAR FILTRATION RATE > 60.0 (>60); GLUCOSE, FASTING 91 MG/DL (70-100); POTASSIUM SERUM 4.1 MEQ/L (3.5-5.1); SODIUM LEVEL 137 MEQ/L (136-145)
[2018-08-20] MEDS ORDERED: BACT800T5 PO (20:03)
[2018-08-20 20:10] VITALS: BP 119/71
[2018-08-20] MEDS ORDERED: BACTRIM 160MG/800MG DS TAB PO ONE (20:15)
--- NOTE | 2018-08-20 20:46 | REPVR ---
EXAM: US Left Breast Limited EXAM DATE/TIME: 08/20/2018 6:06 PM CLINICAL HISTORY: 33 years old, female; Pain; Breast pain; Left; Additional info: Left lateral breast pain TECHNIQUE: Limited ultrasound of Left breast with image documentation, including axilla when performed. COMPARISON: No relevant prior studies available. FINDINGS: This is a limited ultrasound of the left breast in the area of the patient's pain retroareolar and 3:00 position. There is evidence of some swelling. There is also prominence of the ducts retroareolar tissue and 3:00 position. Suspected debris within these ducts. The changes may be the result of mastitis. Inflammatory carcinoma could not be excluded. It would be important to obtain a followup mammogram and ultrasound to determine if this this resolves. If changes of mastitis do not resolve then biopsy may be necessary. There is no focal abscess identified. IMPRESSION: Mild swelling and prominence of the ducts subareolar region and 3:00 position. After treatment recommended additional imaging with mammography and repeat left breast ultrasound. Followup should be in no longer than a few weeks. ASSESSMENT: BI-RADS 0 Electronically signed by: Rikki Melgar On 08/20/2018 20:46:36 PM
== END 2018-08-20 20:13 | disposition home or self-care (01) ==
LOC: M ED 16:43
DX: G43.909 Migraine, unspecified, not intractable, without status migrainosus (principal); F41.9 Anxiety disorder, unspecified; I10 Essential (primary) hypertension; K21.9 Gastro-esophageal reflux disease without esophagitis; K58.9 Irritable bowel syndrome, unspecified; Z87.442 Personal history of urinary calculi; Z79.899 Other long term (current) drug therapy; Z88.8 Allergy status to other drugs, medicaments and biological substances

== ENCOUNTER → 2018-09-05 | Outpatient (CLI) | payer OTHER ==
[~2018-09-05] MED LIST changes: +ALPR0.5T3 PO; +AMIT50TA PO; +BACT800T5 PO; +SERT-138 PO; +TIZA-208 PO
--- NOTE | 2018-09-05 20:10 | REP ---
Digital diagnostic bilateral mammography with CAD and focused repeat sonographic findings: History: Severe left breast pain. Unresponsive to antibiotics. The patient reports a prior history of mastitis. Comparison sonography August 20, 2018 showed dilated retroareolar ducts containing hypoechoic debris. Mammographic findings: There is a pattern of mildly prominent retroareolar ducts bilaterally, left more so than right. No dominant density is seen. No microcalcification is observed. No architectural distortion or worrisome skin change is seen. Focused left breast sonographic findings: Posterior to the left nipple dilated ducts are again seen containing some debris. The appearance is felt to be improved. The ducts appear somewhat less dilated and the intraductal material is less echogenic. No mass or suspicious acoustic shadowing is seen. Impression: BIRADS category II benign findings. Improved retroareolar ducts. No suspicious mammographic or sonographic finding. Clinical follow-up is advised. BI-RADS/ACR category 2 mammogram. Benign finding(s). Routine annual screening mammography (for women over age 40). This mammogram was interpreted with the aid of an FDA-approved computer-aided detection system. The patient states she had a clinical breast exam in July 2018. The patient letter being requested is m2. This patient's estimated Tyrer-Cuzick lifetime risk assessment for the breast cancer is 20.1 %. Enhanced screening in the form of annual bilateral breast MRI scanning is warranted. Bilateral breast MRI scanning is recommended annually, beginning 6 months from now. Electronically Signed by Remy Dejesus MD 09/05/2018 08:27 P
== END ==
LOC: M RAD 12:01
PROVIDERS: ATTEND Internal Medicine
DX: N64.4 Mastodynia (principal)

== ENCOUNTER 2018-10-23 12:05 | Emergency (ER) | payer OTHER ==
[~2018-10-23] VITALS: Ht 157.5 cm; Wt 90.9 kg
--- NOTE | 2018-10-23 14:08 | REP ---
Clinical: Left breast erythema and swelling. Rule out abscess. Technique: Real time jacobson scale and color evaluation using linear high frequency transducer. Findings: Directed ultrasound examination at the area of maximal tenderness in the left breast between 12 and 3 o'clock position and subareolar region performed. There is no evidence for discrete fluid collection/abscess. Subareolar dilated ducts are identified with internal debris. Impression: 1. No evidence for abscess. 2. Ductal ectasia. Electronically Signed by Gennaro Edwards MD 10/23/2018 01:59 P
[2018-10-23 14:59] VITALS: BP 138/75
== END 2018-10-23 15:01 | disposition home or self-care (01) ==
LOC: M ED 12:05
DX: N60.49 Mammary duct ectasia of unspecified breast (principal); N64.52 Nipple discharge; I10 Essential (primary) hypertension; K58.9 Irritable bowel syndrome, unspecified; Z88.8 Allergy status to other drugs, medicaments and biological substances; Z79.899 Other long term (current) drug therapy

== ENCOUNTER → 2018-11-09 | Outpatient (REF) | payer OTHER | LOC: M SFHCLERA 10:36 | PROVIDERS: ATTEND Physician Assistant | DX: R50.9 Fever, unspecified (principal) ==